=== PATIENT | male | born 1975 | race Caucasian/White ===

== ENCOUNTER 2023-09-08 16:16 | Outpatient (AMB) | payer BC, SELFPAY ==
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
[2023-09-08 16:22] VITALS: BP 130/80; PULSE 98; TEMP 36.4; O2SAT 97; BMI 35.7
== END 2023-09-08 16:48 | disposition home or self-care (01) ==
PROVIDERS: PCP Internal Medicine Endocrinology, Diabetes & Metabolism; Visit Provider Emergency Medicine
DX: M54.2 Cervicalgia (principal); V87.7XXA Person injured in collision between other specified motor vehicles (traffic), initial encounter
CPT/HCPCS: 99213